=== PATIENT | female | born 1940 | race Two or more races ===

== ENCOUNTER 2019-08-17 20:52 | Inpatient (IN) | payer OTHER, MEDICAID ==
[~2019-08-17] VITALS: Ht 157.5 cm; Wt 56.7 kg
--- NOTE | 2019-08-18 02:30 | NUR ---
GPS SURGICAL TECH NOTES: ADMITTED 78 Y/O FEMALE PT. FROM [facility] TO GPS UNIT ON 5150 HOLD. PER HOLD, PATIENT WAS ACTING BIZARRE, SCREAMING, MAKING NONSENSICAL STATEMENTS IN HER FRONT YARD & NEIGHBOR'S CALLED POLICE. DURING INTERVIEW WITH CRISIS SUPPLY CHAIN ANALYST, PATIENT WAS UNABLE TO PROVIDE VIABLE PLAN FOR HERSELF, PARANOID & PER SON MALLORY, PT. HAS BEEN REFUSING HELP FROM FAMILY. UPON FACE TO FACE ASSESSMENT, PATIENT IS A & O X 2, CONFUSED, DISORIENTED, DISORGANIZED, PARANOID, KEEP CRYING & REPETITIVELY SAYING," I AM SCARED, WHY I AM HERE ?" NON REDIRECTABLE, ANXIOUS, RESTLESS, DEPRESSED. DENIED SI/HI AT THIS TIME. NEEDS ASSISTANCE WITH ADL CARE. WEAKNESS. PT UNABLE TO SIGN CONSENT FORMS DUE TO BEING ANXIOUS/CRYING. ENVIRONMENTAL SAFETY CHECK DONE. BED ALARM ON. BED IN LOW LOCKED POSITION. ORIENTED TO THE UNIT. CHECKED FOR BELONGING AND CONTRABAND. FULL BODY ASSESSMENT DONE, PICTURES TAKEN. PT ORDERED. PROVIDED PT W/ HANDBOOK AND MED GUIDE. PT. IS UNDER CARE OF PSYCHIATRIST DR. GARCIA & MEDICAL DR. DU. NO S/S OF RESP DISTRESS NOTED. WILL CONTINUE TO MONITOR Q 15 MINS. FOR SAFETY & BEHAVIOR.
[2019-08-18] MEDS ORDERED: AMLO5TAB4 PO (03:53)
[2019-08-18] MEDS ORDERED: CARV25TA PO (03:53)
[2019-08-18] MEDS ORDERED: VALS80TA2 PO (03:53)
[2019-08-18] MEDS ORDERED: NEBI10TA2 PO (03:53)
[2019-08-18] MEDS ORDERED: QUET25TA PO ×2 (03:53)
[2019-08-18] MEDS ORDERED: MAG HYDROX/AL HYDROX/SIMETH 30 ML UDC PO PRN (04:00)
[2019-08-18] MEDS ORDERED: MAGNESIUM HYDROXIDE 30 ML UDC PO PRN (04:00)
--- NOTE | 2019-08-18 04:19 | NUR ---
GPS RN NOTE NOTIFIED DR. DU TO DO MED RECON, MD STATED TO INFORM AM MD TO DO MED RECON IN AM SINCE PATIENT DOES NOT NEED ANY MEDICINE AT THIS TIME. WILL ENDORSE TO AM RN TO FOLLOW UP WITH AM MD FOR MED RECON.
[2019-08-18] MEDS ORDERED: BLOOD SUGAR DIAGNOSTIC 1 EACH STRIP IN ONE (04:30)
[2019-08-18 06:36] LABS: BASOPHILS # (AUTO) 0.2 /CMM (0.0-0.2); BASOPHILS % (AUTO) 1.5 % (0.0-2.0); EOSINOPHILS % (AUTO) 2.3 % (0.0-6.0); HEMATOCRIT 37 % (33-45); HEMOGLOBIN 11.4 g/dL (11.5-14.8); LYMPHOCYTES % (AUTO) 28.1 % (20.0-44.0); MEAN CORPUSCULAR HGB CONC 31 g/dl (31.0-36.0); MEAN CORPUSCULAR VOLUME 72 fL (82-100); MONOCYTES # (AUTO) 0.8 /CMM (0.1-1.30); NEUTROPHILS # (AUTO) 6.6 /CMM (1.8-8.9); NEUTROPHILS % (AUTO) 61.1 % (43.0-81.0); PLATELET COUNT (AUTO) 326 /CMM (150-450); RED BLOOD CELL COUNT(AUTO) 5.08 MIL/uL (4.0-5.2); WHITE BLOOD COUNT (AUTO) 10.8 K/uL (4.3-11.0)
--- NOTE | 2019-08-18 06:48 | NUR ---
CALLED SON MALLORY & NOTIFIED CALLED SON MALLORY AT [phone] & INFORMED HIM ABOUT THE ADMISSION AT [facility] GPS UNIT. SON MIGHT VISIT THE PATIENT TODAY OR MIGHT CALL TO GET UPDATES.
[2019-08-18 07:03] LABS: CALCIUM, SERUM 9.1 mg/dL (8.5-10.1); CREATININE 1.2 mg/dL (0.6-1.3); POTASSIUM 4.2 mmol/L (3.5-5.1)
[2019-08-18 08:00] VITALS: BP 115/56
[2019-08-18] MEDS ORDERED: DIVALPROEX SODIUM 125 MG CAP.SPRINK PO SCH (10:30)
--- NOTE | 2019-08-18 11:01 | NUR ---
RN NOTE/MEDICATION REFUSAL-PT REFUSED FIRST DOSE OF DEPAKOTE. EDUCATED PT ON PURPOSE OF MEDICATION PT CONT TO REFUSE X 3.
--- NOTE | 2019-08-18 11:43 | NUR ---
FAMILY CONTACT: SW contacted pts son Charles [phone] for collateral information and discharge planning. Per son, he states pt lives at home alone and refuses assistance from her family. He states that pt is paranoid and states that everyone owes her billions of dollars and calls family demanding for them to pay her. Son states that family has blocked her and has no contact with her due to her aggressive and paranoid behavior. He also states that pt was grandiose delusional of being a social media henao of the world and that Danial and Steve are her friends. Son states that pts bizarre, aggressive, and violent behavior began 5 years ago and it has gotten worse over the years. He states that he and his brothers have attempted multiple times to take pt to the hospital for a psychiatric evaluation but when they have attempted to pt became aggressive and began hitting them. Son states that he believes pt has had a mental illness all her life and it went untreated until now. He also states that this is her fist psychiatric hospitalization. Son states that he wishes for to to return home with a caregiver but knows that due to pts paranoid behavior she will now allow for that to happen. Son will make himself available for transportation once pt is stable for discharge.
--- NOTE | 2019-08-18 12:19 | NUR ---
INITIAL DISCHARGE PLAN: Pt will return home [address] [facility] [address] . Pts son Charles [phone] agrees with pts discharge back home. SW will help form a safe and proper discharge in collaboration with .
--- NOTE | 2019-08-18 15:33 | NUR ---
GROUP THERAPY: SW encouraged pt to attend group therapy on this present day discussing "suicidal ideation." Pt is not appropriate for group at this time as she is responding to internal stimuli and being verbally aggressive. Pt refused to speak to SW and asked her to leave her room. SW will encourage pt to regulate mood via individual/group therapy and be complaint with medications.
[2019-08-18 16:00] VITALS: BP 130/59
--- NOTE | 2019-08-18 16:30 | NUR ---
RN NOTE: DR. JEFFERSON SAW PT THIS AM. NO NEW ORDERS. DR. JEFFERSON NOTIFIED AT 16:30 AND STATED WILL DO MEDICATION RECONCILIATION.
[2019-08-18] MEDS ORDERED: risperiDONE 0.25 MG TABLET PO SCH (17:00)
--- NOTE | 2019-08-18 19:35 | NUR ---
GPS RN OPENING NOTES: PATIENT RESTING IN HER BED, EASILY AGITED ,DISHELVED ,PARANOID DENIES SI/HI/AVH AT THIS TIME,.ENCOURAGED FOR VERBALIZATION OF FEELINGS, SAFETY PRECAUTIONS IMPLEMENTED. INTERACT WITH ENGAGED, WILL CONTINUE TO MONITOR Q15MIN ROUNDS FOR SAFETY AND BEHAVIOR.
[2019-08-18 20:40] VITALS: BP 158/53
[2019-08-18] MEDS: CARVEDILOL 12.5 MG TABLET PO SCH (21:20)
[2019-08-18] MEDS: DIVALPROEX SODIUM 125 MG CAP.SPRINK PO SCH (21:21)
[2019-08-18] MEDS: BENZTROPINE MESYLATE (1 MG) 1 MG TABLET PO SCH (21:21)
--- NOTE | 2019-08-19 05:33 | NUR ---
RN NOTES: PT. REFUSED TO PROVIDE URINE SPECIMEN ,UNABLE TO OBTAIN URINE SPECIMEN , DUE TO PT. CONFUSED , FORGETFUL, ENCOURGED X3 , EXPLINED RISKS AND BENEFITS ,STILL REFUSED WILL CONTINUITY WITH CARE.
--- NOTE | 2019-08-19 06:38 | NUR ---
GPS RN CLOSING NOTE: PATIENT IN BED COMFORTABLY,AND EASILY AGITAED, PARANOID DURING IN SHIFT ,REDIRECT TO THE PATIENT, PT. TOOK ALL NIGHT MED WITH ENCOURAGEMENT ,NO ACUTE DISTRESS NOTED. DENIES PAIN OR DISCOMFORT ,DENIES SI/HI/AVH AT THIS TIME. SAFETY PRECAUTIONS IMPLEMENTED.ALL NEEDS ATTENDED AND ANTICIPATED, ENCOURGED FOR VERBALIZED ANY FEELING ,BED ALARM ON AND IN LOCKED POSITION. WILL CONTINUE TO MONITOR FOR PT'S SAFETY.
[2019-08-19 08:00] VITALS: BP 145/66
[2019-08-19] MEDS: CARVEDILOL 12.5 MG TABLET PO SCH ×2 (08:52→20:53)
[2019-08-19] MEDS: DIVALPROEX SODIUM 125 MG CAP.SPRINK PO SCH ×2 (08:52→20:52)
[2019-08-19] MEDS: AMLODIPINE BESYLATE 5 MG TABLET PO SCH ×2 (08:53→16:33)
[2019-08-19] MEDS: VALSARTAN 80 MG TABLET PO SCH (08:53)
[2019-08-19] MEDS: risperiDONE 0.25 MG TABLET PO SCH ×2 (08:53→16:33)
--- NOTE | 2019-08-19 09:02 | NUR ---
pt took most AM medications but only took 1 tab of coreg and 1 tab of risperdal instead of 2 each stating that it is too many pills and she does not need them.
--- NOTE | 2019-08-19 09:33 | NUR ---
GPS RN NOTE: OPENING NOTE RECEIVED PATIENT IN BED, RESTING. PATIENT IS IN NO APPARENT SIGNS OF DISTRESS BUT IS EASILY AGITATED. ARGUMENTATIVE.PATIENT IS SELECTIVE WITH HER MEDICATION STATING THAT IT WAS TOO MANY PILLS AND HER BLOOD PRESSURE WAS NOT VERY HIGH THIS MORNING. SHE TOOK HALF OF HER COREG AND HALF OF HER RISPERDAL. PT IS PARANOID AND DELUSIONAL STATING THAT WE ARE TRYING TO KILL HER WITH ALL THE MEDICATIONS.PATIENT IS FOCUSED ON GETTING HER CELL PHONE AND LEAVING. PT DENIES SI/HI AT PRESENT TIME. WILL CONT TO MONITOR PT Q15 FOR MOOD, SAFETY AND BEHAVIOR
[2019-08-19 16:00] VITALS: BP 110/71
[2019-08-19] MEDS: ACETAMINOPHEN 325 MG TABLET PO PRN ×2 (17:50→17:52)
[2019-08-19 21:12] VITALS: BP 146/75
[2019-08-19] MEDS: BENZTROPINE MESYLATE (1 MG) 1 MG TABLET PO SCH (21:37)
[2019-08-20] MEDS: LORAZEPAM 0.5 MG TABLET PO PRN ×2 (03:21→18:08)
--- NOTE | 2019-08-20 03:24 | NUR ---
GPS-RN NOTES: ANXIETY PATIENT C/O FEELING ANXIOUS. ADMINISTERED ATIVAN 0.5MG PO ORDERED. WILL CONTINUE TO MONITOR FOR PT'S SAFETY.
[2019-08-20 08:00] VITALS: BP 113/64
[2019-08-20] MEDS: CARVEDILOL 12.5 MG TABLET PO SCH ×3 (08:36→20:21)
[2019-08-20] MEDS: DIVALPROEX SODIUM 125 MG CAP.SPRINK PO SCH ×3 (08:36→20:21)
[2019-08-20] MEDS: risperiDONE 0.25 MG TABLET PO SCH ×3 (08:36→16:18)
[2019-08-20] MEDS: VALSARTAN 80 MG TABLET PO SCH (08:38)
[2019-08-20] MEDS: AMLODIPINE BESYLATE 5 MG TABLET PO SCH ×4 (08:39→16:18)
--- NOTE | 2019-08-20 09:00 | NUR ---
RN NOTE - RECEIVED PT LYING IN BED. NO ACUTE DISTRESS NOTED. VSS, AFEBRILE. PT COMPLIANT WITH MEDICAATION ADMINISTRATION WITH ENCOURAGEMENT. TOOK ALL AM MEDICATIONS. PT IS PARANOID AND DELUSIONAL. PT IS FEARFUL AND WITHDRAWN. PT DENIES SI/HI/AH/VH AT PRESENT TIME. WILL CONT TO MONITOR PT PER GPS PROTOCOL
[2019-08-20 16:13] VITALS: BP 111/59
[2019-08-20 16:22] LABS: APPEARANCE,URINE CLEAR (CLEAR); BILIRUBIN,URINE NEGATIVE (NEGATIVE); BLOOD, URINE NEGATIVE Ery/uL (NEGATIVE); COLOR,URINE YELLOW (YELLOW); KETONES,URINE NEGATIVE (NEGATIVE); LEUKOCYTE ESTERASE ,URINE TRACE (NEGATIVE); NITRITE, URINE NEGATIVE (NEGATIVE); PH,URINE 6.5 (5.0-8.0); PROTEIN,URINE NEGATIVE (NEGATIVE); UGLUCOSE NEGATIVE (NEGATIVE); UROBILINOGEN,URINE 0.2 EU/dL (0.2)
[2019-08-20 17:30] LABS: BACTERIA,URINE None seen /HPF (None Seen); RBC,URINE 0-2 /HPF (0-2); SQUAMOUS EPITHELIAL CELL,UR 0-2 /HPF (None Seen)
--- NOTE | 2019-08-20 18:08 | NUR ---
RN NOTE: PT EXHIBITING INCREASED ANXIETY. MEDICATED WITH ATIVAN O.5 MG PO PRN
[2019-08-20 20:12] VITALS: BP 157/71
[2019-08-20] MEDS: BENZTROPINE MESYLATE (1 MG) 1 MG TABLET PO SCH (21:06)
[2019-08-21 08:00] VITALS: BP 137/68
[2019-08-21] MEDS: VALSARTAN 80 MG TABLET PO SCH (08:32)
[2019-08-21] MEDS: risperiDONE 0.25 MG TABLET PO SCH (08:32)
[2019-08-21] MEDS: AMLODIPINE BESYLATE 5 MG TABLET PO SCH ×2 (08:32→16:46)
[2019-08-21] MEDS: CARVEDILOL 12.5 MG TABLET PO SCH ×2 (08:32→21:01)
[2019-08-21] MEDS: DIVALPROEX SODIUM 125 MG CAP.SPRINK PO SCH ×2 (08:32→21:02)
--- NOTE | 2019-08-21 09:30 | NUR ---
GPS RN OPENING NOTE RECEIVED PATIENT IN BED, RESTING. PATIENT IS IN NO APPARENT SIGNS OF DISTRESS BUT IS EASILY AGITATED. PT IS PARANOID AND DELUSIONAL STATING THAT SHE KNOWS PRESIDENT PAPO. FOCUSED ON GETTING HER PHONE AND GOING ON SOCIAL MEDIA. PT DENIES SI/HI AT PRESENT TIME. WILL CONT TO MONITOR PT Q15 FOR MOOD, SAFETY AND BEHAVIOR
--- NOTE | 2019-08-21 10:22 | NUR ---
UR NOTE: YORDY faxed clinicals to [facility] P: [phone] F: [phone], tracking #: [id number] for review.
[2019-08-21] MEDS ORDERED: risperiDONE 1 MG TABLET PO ONE (12:00)
[2019-08-21 16:00] VITALS: BP 135/73
[2019-08-21] MEDS: risperiDONE 1 MG TABLET PO SCH (16:46)
--- NOTE | 2019-08-21 19:30 | NUR ---
GPS RN OPENING NOTES: PATIENT RESTING IN HER BED, EASILY AGITED ,DISHELVED ,PARANOID, DELUSIONAL , HYPERVERBAL DENIES SI/HI/AVH AT THIS TIME,.ENCOURAGED FOR VERBALIZATION OF FEELINGS, SAFETY PRECAUTIONS IMPLEMENTED. INTERACT WITH ENGAGED, WILL CONTINUE TO MONITOR Q15MIN ROUNDS FOR SAFETY AND BEHAVIOR.
[2019-08-21 20:55] VITALS: BP 103/62
[2019-08-21] MEDS: BENZTROPINE MESYLATE (1 MG) 1 MG TABLET PO SCH (21:33)
[2019-08-21] MEDS: LORAZEPAM 0.5 MG TABLET PO PRN (23:21)
--- NOTE | 2019-08-21 23:22 | NUR ---
RN NOTES: PT. C/O FEELING ANXIOUS ,RESTLESS ATIVAN 0.5 MG PO PRN GIVEN PER PT. REQUEST , WILL CONTINUE TO MONITOR.
--- NOTE | 2019-08-22 06:21 | NUR ---
GPS RN CLOSING NOTE: PATIENT RESTING IN BED ASLEEP,COMFORTABLY,AND EASILY AGITAED, PARANOID, HYPERVERBAL DURING IN SHIFT ,REDIRECT TO THE PATIENT, MED COMPLY ,NO ACUTE DISTRESS NOTED. DENIES PAIN OR DISCOMFORT ,DENIES SI/HI/AVH AT THIS TIME. SAFETY PRECAUTIONS IMPLEMENTED.ALL NEEDS ATTENDED AND ANTICIPATED, ENCOURGED FOR VERBALIZED ANY FEELING ,BED ALARM ON AND IN LOCKED POSITION. WILL CONTINUE TO MONITOR FOR PT'S SAFETY.
[2019-08-22 07:43] LABS: BASOPHILS # (AUTO) 0.1 /CMM (0.0-0.2); BASOPHILS % (AUTO) 0.9 % (0.0-2.0); EOSINOPHILS % (AUTO) 2.3 % (0.0-6.0); HEMATOCRIT 37 % (33-45); HEMOGLOBIN 11.5 g/dL (11.5-14.8); LYMPHOCYTES # (AUTO) 3.8 /CMM (0.8-4.8); LYMPHOCYTES % (AUTO) 31.5 % (20.0-44.0); MEAN CORPUSCULAR HGB CONC 31 g/dl (31.0-36.0); MEAN CORPUSCULAR VOLUME 72 fL (82-100); MONOCYTES # (AUTO) 0.8 /CMM (0.1-1.30); MONOCYTES % (AUTO) 6.9 % (2.0-12.0); NEUTROPHILS % (AUTO) 58.4 % (43.0-81.0); PLATELET COUNT (AUTO) 386 /CMM (150-450); RED BLOOD CELL COUNT(AUTO) 5.18 MIL/uL (4.0-5.2)
[2019-08-22 08:00] VITALS: BP 139/70
[2019-08-22 08:05] LABS: ALBUMIN 3.8 g/dL (3.4-5.0); BILIRUBIN,TOTAL 0.4 mg/dL (0.2-1.0); CALCIUM, SERUM 9.6 mg/dL (8.5-10.1); CREATININE 1.3 mg/dL (0.6-1.3); POTASSIUM 4.5 mmol/L (3.5-5.1); TOTAL PROTEIN, SERUM 7.7 g/dL (6.4-8.2)
[2019-08-22] MEDS: risperiDONE 1 MG TABLET PO SCH ×3 (08:21→21:14)
[2019-08-22] MEDS: DIVALPROEX SODIUM 125 MG CAP.SPRINK PO SCH (08:21)
[2019-08-22] MEDS: VALSARTAN 80 MG TABLET PO SCH (08:21)
[2019-08-22] MEDS: AMLODIPINE BESYLATE 5 MG TABLET PO SCH ×2 (08:22→16:46)
[2019-08-22] MEDS: CARVEDILOL 12.5 MG TABLET PO SCH ×2 (08:22→21:14)
--- NOTE | 2019-08-22 09:29 | NUR ---
GPS RN OPENING NOTE: RECEIVED PATIENT IN BED, RESTING. PATIENT IS IN NO APPARENT SIGNS OF DISTRESS BUT IS EASILY AGITATED. PT IS PARANOID AND DELUSIONAL STATING THAT SHE KNOWS PRESIDENT PAPO. PATIENT BELIEVES EVERYONE IS TALKING ABOUT HER AND THAT SHE SEES CAMERAS AND LIGHTS FOLLOWING HER AT NIGHT.PT DENIES SI/HI AT PRESENT TIME. PT BELIVES SHE IS HERE FOR BLOOD PRESSURE AND CANNOT ACCEPT THIS IS A PSYCHIATRIC UNIT. PT IS FOCUSED ON GOING HOME AND IS EASILY IRRITATED AND AGITATED. WILL CONT TO MONITOR PT Q15 FOR MOOD, SAFETY AND BEHAVIOR
--- NOTE | 2019-08-22 09:44 | NUR ---
UR NOTE: YORDY faxed clinicals to [facility] P: [phone] F: [phone], tracking #: [id number] for review.
--- NOTE | 2019-08-22 11:04 | NUR ---
PROBABLE CAUSE HEARING NOTIFICATION: YORDY contacted pts son Charles [phone] and left a voicemail informing him of pts probable cause hearing on this present day.
--- NOTE | 2019-08-22 12:23 | NUR ---
UR NOTE: SW received a call from Latonya aftercare coordinator at [facility] ([phone]) who stated she will provide pt with aftercare appointments once she has a discharge date. YORDY will call to coordinate aftercare appointments once pt is stable for discharge.
--- NOTE | 2019-08-22 15:27 | NUR ---
FAMILY CONTACT: SW received a call from pts son Charles [phone] and informed him pts 14 day hold has been upheld. Son expressed concerns and is questioning why pt needs to be here longer, SW explained that pt is not stable and has not shown any progress since she was admitted. SW informed him that pt continues to respond to internal stimuli, is paranoid, and delusional and verbally aggressive and believes she is here for medical reason. SW explained that medication is slowly being increased and at this time it is not safe to discharge pt home. Son understands and states that he wishes to visit but knows pt will become aggressive and attempt to leave with him. SW advised that it may be best if he does not visit until pt is more stable as his presence may negatively trigger pt and also informed him that pt is focused on discharging and continues to ask for him so she can leave. Son agrees and states he will consider visiting her at a later time.
[2019-08-22 16:00] VITALS: BP 129/61
--- NOTE | 2019-08-22 16:12 | NUR ---
Group Note: Pt was encouraged to attend group therapy on 08/22/19 at 2pm discussing the topic of concerns around discharge plan. Pt appeared to be responding to internal stimuli and appeared to be delusional. SW attempted to speak to the pt regarding her discharge planning but the pt was unable to focus. SW deemed the pt inappropriate for group therapy.
--- NOTE | 2019-08-22 19:45 | NUR ---
GPS RN OPENING NOTES: PATIENT RESTING IN HER BED, ANXIOUS ,EASILY AGITED ,DISHELVED ,PARANOID, DELUSIONAL , HYPERVERBAL DENIES SI/HI/AVH AT THIS TIME,.ENCOURAGED FOR VERBALIZATION OF FEELINGS, SAFETY PRECAUTIONS IMPLEMENTED. INTERACT WITH ENGAGED, WILL CONTINUE TO MONITOR Q15MIN ROUNDS FOR SAFETY AND BEHAVIOR.
[2019-08-22 20:12] VITALS: BP 119/63
--- NOTE | 2019-08-22 21:00 | NUR ---
RN GPS NOTES: COLLECT URINE SPECIMEN AND SEND OUT TO THE LAB.
[2019-08-22] MEDS: BENZTROPINE MESYLATE (1 MG) 1 MG TABLET PO SCH (21:14)
[2019-08-22] MEDS ORDERED: DIVALPROEX SODIUM 125 MG TABLET.DR PO SCH (22:00)
[2019-08-23 01:26] LABS: APPEARANCE,URINE CLEAR (CLEAR); BILIRUBIN,URINE NEGATIVE (NEGATIVE); BLOOD, URINE NEGATIVE Ery/uL (NEGATIVE); COLOR,URINE YELLOW (YELLOW); KETONES,URINE NEGATIVE (NEGATIVE); LEUKOCYTE ESTERASE ,URINE NEGATIVE (NEGATIVE); NITRITE, URINE NEGATIVE (NEGATIVE); PROTEIN,URINE NEGATIVE (NEGATIVE); UGLUCOSE NEGATIVE (NEGATIVE); UROBILINOGEN,URINE 0.2 EU/dL (0.2)
--- NOTE | 2019-08-23 06:48 | NUR ---
GPS RN CLOSING NOTE: PATIENT RESTING IN BED ASLEEP,COMFORTABLY,AND EASILY AGITAED, PARANOID, HYPERVERBAL DURING IN SHIFT ,REDIRECT TO THE PATIENT, MED COMPLY ,NO ACUTE DISTRESS NOTED. DENIES PAIN OR DISCOMFORT ,DENIES SI/HI/AVH AT THIS TIME. SAFETY PRECAUTIONS IMPLEMENTED.ALL NEEDS ATTENDED AND ANTICIPATED, ENCOURGED FOR VERBALIZED ANY FEELING , WILL CONTINUE TO MONITOR FOR PT'S SAFETY AND BEHAVIOR.
[2019-08-23 08:00] VITALS: BP 118/68
[2019-08-23] MEDS: AMLODIPINE BESYLATE 5 MG TABLET PO SCH ×2 (08:48→16:01)
[2019-08-23] MEDS: LORAZEPAM 0.5 MG TABLET PO PRN ×2 (08:48→17:14)
[2019-08-23] MEDS: risperiDONE 1 MG TABLET PO SCH ×3 (08:48→21:17)
[2019-08-23] MEDS: DIVALPROEX SODIUM 125 MG CAP.SPRINK PO SCH (08:48)
[2019-08-23] MEDS: VALSARTAN 80 MG TABLET PO SCH (08:48)
[2019-08-23] MEDS: CARVEDILOL 12.5 MG TABLET PO SCH ×2 (08:49→21:23)
--- NOTE | 2019-08-23 14:30 | NUR ---
FAMILY CONTACT: SW met with pts son Clem [phone] on this present day after he expressed not knowing what was going on with pt and why she is hospitalized. SW explained that she has been communicating with pts son Charles who has been the pts point of contact. Son states that his brother Charles has not been communicating with him and has not given him information regarding pts current hospitalization and psychiatric hold. SW explained reason for hold and also discussed pts discharge plan. Son stated that he had no idea pt had been acting bizarre at home. He states that when pt is ready for discharge he will be coming to pick her up and transporting her home.
[2019-08-23 16:00] VITALS: BP 120/75
--- NOTE | 2019-08-23 16:10 | NUR ---
GROUP NOTE: SW encouraged pt to attend group on this present day discussing "discharge planning." Pts son and daughter in law were in pts room visiting and pt refused to attend. Pt appeared calm but was delusional stating that she needed to leave now because she won the lotto and needed to go collect her money. Pts son intervened and stated that she was in the hospital receiving help and that she did not win the lotto. Pt became agitated and was saying he was just jealous of her. Pts reality is impaired and is unable to hold a reality-based conversation at this time. SW will continue to assess for pts level of insight towards her presenting problems and encourage participation in group milieu.
--- NOTE | 2019-08-23 19:23 | NUR ---
GPS-RN OPENING NOTES: PATIENT IN BED AWAKE, ALERT AND ORIENTED X2 WITH EPISODES OF FORGETFUL. IN NO APPARENT DISTRESS NOTED. FAMILY AT BEDSIDE SUPPORTIVE OF CARE. PATIENT IS ISOLATIVE, WITHDRAWN, WITH LIMITED SOCIAL INTERACTIONS WITH PEERS. VERBALIZATION OF FEELINGS ENCOURAGED. NO AGITATION NOTED. SAFETY PRECAUTIONS IN PLACE. WILL CONTINUE TO MONITOR Q15MIN ROUNDS FOR SAFETY AND BEHAVIOR.
[2019-08-23 20:40] VITALS: BP 133/51
[2019-08-23] MEDS: DIVALPROEX SODIUM 500 MG TABLET.DR PO SCH (21:18)
[2019-08-23] MEDS: BENZTROPINE MESYLATE (1 MG) 1 MG TABLET PO SCH (21:18)
[2019-08-23 21:23] VITALS: BP 123/60
[2019-08-24 08:00] VITALS: BP 108/53
--- NOTE | 2019-08-24 08:11 | NUR ---
UR NOTE: YORDY faxed clinicals to [facility] P: [phone] F: [phone], tracking #: [id number] for review.
[2019-08-24] MEDS: CARVEDILOL 12.5 MG TABLET PO SCH ×2 (08:54→21:42)
[2019-08-24] MEDS: DIVALPROEX SODIUM 125 MG CAP.SPRINK PO SCH (08:54)
[2019-08-24] MEDS: AMLODIPINE BESYLATE 5 MG TABLET PO SCH ×2 (08:54→16:29)
[2019-08-24] MEDS: VALSARTAN 80 MG TABLET PO SCH (08:54)
[2019-08-24] MEDS: risperiDONE 1 MG TABLET PO SCH ×3 (08:54→20:54)
--- NOTE | 2019-08-24 14:50 | NUR ---
UR NOTE: YORDY received a call from Bebeto, caser in at [facility] P: [phone] F: [phone] requesting SW fax [phone] and [phone] holds and also requesting Depakote Levels as he states that per MD notes pt currently does not meet criteria for continued psychiatric hospitalization.
--- NOTE | 2019-08-24 14:53 | NUR ---
UR NOTE: faxed [phone] holds to Beb[employer] protective services case worker at [facility] P: [phone] F: [phone], tracking #: [id number] for review.
--- NOTE | 2019-08-24 15:31 | NUR ---
Group Note: Pt was encouraged to attend group therapy on 08/24/19 at 2pm discussing the topic of social supports. Pt appeared to be responding to internal stimuli and appeared to be delusional. SW attempted to speak to the pt regarding her discharge planning but the pt was unable to focus. SW deemed the pt inappropriate for group therapy.
[2019-08-24 16:00] VITALS: BP 130/64
[2019-08-24 20:15] VITALS: BP 113/82
[2019-08-24 20:25] VITALS: BP 138/66
[2019-08-24] MEDS: BENZTROPINE MESYLATE (1 MG) 1 MG TABLET PO SCH (21:43)
[2019-08-24] MEDS: DIVALPROEX SODIUM 500 MG TABLET.DR PO SCH (21:43)
[2019-08-25] MEDS: TEMAZEPAM 7.5 MG CAPSULE PO PRN (01:53)
--- NOTE | 2019-08-25 01:53 | NUR ---
GPS-RN NOTE: INSOMNIA PATIENT C/O INABILITY TO SLEEP. ADMINISTERED RESTORIL ORDERED. WILL CONTINUE TO MONITOR FOR PATIENT'S SAFETY.
[2019-08-25 08:00] VITALS: BP 141/69
[2019-08-25] MEDS: DIVALPROEX SODIUM 125 MG CAP.SPRINK PO SCH (08:15)
[2019-08-25] MEDS: risperiDONE 1 MG TABLET PO SCH ×3 (08:15→21:23)
[2019-08-25] MEDS: CARVEDILOL 12.5 MG TABLET PO SCH ×2 (08:16→21:00)
[2019-08-25] MEDS: AMLODIPINE BESYLATE 5 MG TABLET PO SCH ×2 (08:16→16:45)
[2019-08-25] MEDS: VALSARTAN 80 MG TABLET PO SCH (08:17)
[2019-08-25 16:00] VITALS: BP 99/57
[2019-08-25 20:00] VITALS: BP 127/53
[2019-08-25] MEDS: DIVALPROEX SODIUM 500 MG TABLET.DR PO SCH (21:22)
[2019-08-25] MEDS: BENZTROPINE MESYLATE (1 MG) 1 MG TABLET PO SCH (21:23)
[2019-08-26 06:47] LABS: BASOPHILS # (AUTO) 0.1 /CMM (0.0-0.2); BASOPHILS % (AUTO) 1.1 % (0.0-2.0); EOSINOPHILS % (AUTO) 2.6 % (0.0-6.0); HEMATOCRIT 36 % (33-45); HEMOGLOBIN 11.1 g/dL (11.5-14.8); LYMPHOCYTES # (AUTO) 3.9 /CMM (0.8-4.8); LYMPHOCYTES % (AUTO) 38.3 % (20.0-44.0); MEAN CORPUSCULAR HGB CONC 31 g/dl (31.0-36.0); MEAN CORPUSCULAR VOLUME 72 fL (82-100); MONOCYTES # (AUTO) 0.8 /CMM (0.1-1.30); MONOCYTES % (AUTO) 8.2 % (2.0-12.0); NEUTROPHILS # (AUTO) 5.1 /CMM (1.8-8.9); NEUTROPHILS % (AUTO) 49.8 % (43.0-81.0); PLATELET COUNT (AUTO) 333 /CMM (150-450); RED BLOOD CELL COUNT(AUTO) 4.92 MIL/uL (4.0-5.2); WHITE BLOOD COUNT (AUTO) 10.3 K/uL (4.3-11.0)
[2019-08-26 07:30] LABS: ALBUMIN 3.1 g/dL (3.4-5.0); BILIRUBIN,TOTAL 0.2 mg/dL (0.2-1.0); CALCIUM, SERUM 8.9 mg/dL (8.5-10.1); CREATININE 1.2 mg/dL (0.6-1.3); POTASSIUM 4.6 mmol/L (3.5-5.1); TOTAL PROTEIN, SERUM 6.7 g/dL (6.4-8.2)
[2019-08-26 08:00] VITALS: BP 123/62
[2019-08-26] MEDS: risperiDONE 1 MG TABLET PO SCH ×3 (08:30→21:26)
[2019-08-26] MEDS: VALSARTAN 80 MG TABLET PO SCH (08:30)
[2019-08-26] MEDS: DIVALPROEX SODIUM 125 MG CAP.SPRINK PO SCH (08:30)
[2019-08-26] MEDS: AMLODIPINE BESYLATE 5 MG TABLET PO SCH ×2 (08:31→16:27)
[2019-08-26] MEDS: CARVEDILOL 12.5 MG TABLET PO SCH ×2 (08:31→21:26)
[2019-08-26 16:00] VITALS: BP 110/73
[2019-08-26 20:12] VITALS: BP 110/49
[2019-08-26 21:26] VITALS: BP 140/68
[2019-08-26] MEDS: DIVALPROEX SODIUM 500 MG TABLET.DR PO SCH (21:27)
[2019-08-26] MEDS: BENZTROPINE MESYLATE (1 MG) 1 MG TABLET PO SCH (21:27)
[2019-08-26] MEDS: TEMAZEPAM 7.5 MG CAPSULE PO PRN (22:49)
--- NOTE | 2019-08-26 22:49 | NUR ---
GPS-RN NOTE: INSOMNIA PATIENT C/O INABILITY TO SLEEP. ADMINISTERED RESTORIL 7.5MG PO ORDERED PER PT'S REQUEST. WILL CONTINUE TO MONITOR FOR PATIENT'S SAFETY.
[2019-08-27 08:00] VITALS: BP 128/58
[2019-08-27] MEDS: VALSARTAN 80 MG TABLET PO SCH (08:44)
[2019-08-27] MEDS: AMLODIPINE BESYLATE 5 MG TABLET PO SCH ×2 (08:44→16:59)
[2019-08-27] MEDS: risperiDONE 1 MG TABLET PO SCH ×3 (08:44→21:41)
[2019-08-27] MEDS: DIVALPROEX SODIUM 125 MG CAP.SPRINK PO SCH (08:44)
[2019-08-27] MEDS: CARVEDILOL 12.5 MG TABLET PO SCH ×2 (08:48→21:41)
--- NOTE | 2019-08-27 09:42 | NUR ---
GPS RN OPENING NOTE: RECEIVED PATIENT IN BED, RESTING. PATIENT IS IN NO APPARENT SIGNS OF DISTRESS BUT IS EASILY AGITATED. PT IS PARANOID AND DELUSIONAL STATING THAT SHE NEEDS TO LEAVE BECAUSE SHE WON THE LOTTO. PT DENIES SI/HI AT PRESENT TIME. PT BELIVES SHE IS HERE FOR BLOOD PRESSURE. PT IS FOCUSED ON GOING HOME AND IS EASILY IRRITATED AND AGITATED. WILL CONT TO MONITOR PT Q15 FOR MOOD, SAFETY AND BEHAVIOR
[2019-08-27 16:00] VITALS: BP 117/55
--- NOTE | 2019-08-27 16:59 | NUR ---
GPS RN NOTE: 1700 MED PATIENT REFUSED 1700 BP MED STATING THAT HER BP IS CURRENTLY TOO LOW. DESPITE EDUCATION PATIENT CONTINUES TO REFUSE. WILL CONTINUE TO MONITOR Q15 FOR MOOD, SAFETY AND BEHAVIOR
[2019-08-27 20:30] VITALS: BP 125/58
[2019-08-27] MEDS: DIVALPROEX SODIUM 500 MG TABLET.DR PO SCH (21:40)
[2019-08-27] MEDS: BENZTROPINE MESYLATE (1 MG) 1 MG TABLET PO SCH (21:41)
[2019-08-27] MEDS: TEMAZEPAM 7.5 MG CAPSULE PO PRN (22:05)
--- NOTE | 2019-08-27 22:06 | NUR ---
ms/rn notes Patient in bed, Aaox3. V/S stable, afebrile. Unable to sleep Complained of insomnia. Medicated with Restoril 1tab given as ordere. All safety precautions rendered. CAll light within reach. BEd put on lowest position. All needs attended. will continue plan of care.
[2019-08-28 08:00] VITALS: BP 139/71
[2019-08-28] MEDS: risperiDONE 1 MG TABLET PO SCH ×3 (08:23→21:09)
[2019-08-28] MEDS: CARVEDILOL 12.5 MG TABLET PO SCH ×2 (08:23→21:00)
[2019-08-28] MEDS: DIVALPROEX SODIUM 125 MG CAP.SPRINK PO SCH (08:24)
[2019-08-28] MEDS: VALSARTAN 80 MG TABLET PO SCH (08:24)
[2019-08-28] MEDS: AMLODIPINE BESYLATE 5 MG TABLET PO SCH ×2 (08:24→16:12)
--- NOTE | 2019-08-28 09:01 | NUR ---
UR NOTE: YORDY faxed clinicals to [facility] P: [phone] F: [phone], tracking #: [id number] for review.
--- NOTE | 2019-08-28 09:02 | NUR ---
UR NOTE: YORDY contacted Latonya aftercare coordinator at [facility] ([phone]) to inform her pt will be discharged on Wednesday08/29/19 and will be needing aftercare appointments.
--- NOTE | 2019-08-28 09:03 | NUR ---
FAMILY CONTACT: YORDY contacted pts son Clem [phone] and informed him pt will be discharged tomorrow Wednesday08/29/19. Son states he will be picking pt up between 8:00am-10:00am.
[2019-08-28 16:00] VITALS: BP 123/52
--- NOTE | 2019-08-28 19:17 | NUR ---
GPS RN OPENING NOTES: PATIENT RESTING IN HER BED, ANXIOUS ,EASILY AGITATED, PARANOID, DELUSIONAL , HYPERVERBAL DENIES SI/HI/AVH AT THIS TIME. ENCOURAGED FOR VERBALIZATION OF FEELINGS, SAFETY PRECAUTIONS IMPLEMENTED. INTERACT WITH ENGAGED, BED ALARM ON. SAFETY MEASURES IN PLACE. WILL CONTINUE TO MONITOR Q15MIN ROUNDS FOR SAFETY AND BEHAVIOR.
[2019-08-28 20:14] VITALS: BP 128/61
--- NOTE | 2019-08-28 21:15 | NUR ---
REFUSED COREG PATIENT REFUSED TO TAKE COREG FOR BP DESPITE OF RISKS & BENEFITS EXPLANATIONS. PATIENT STATED," MY BP IS NORMAL & I DON'T WANT BP TO DROP TOO MUCH & I DO NOT WANT TO TAKE BP MEDICINE NOW." VITALS ARE WNL AT THIS TIME. WILL CONTINUE TO MONITOR FOR ANY CHANGES.
[2019-08-28] MEDS: DIVALPROEX SODIUM 500 MG TABLET.DR PO SCH (22:03)
[2019-08-28] MEDS: BENZTROPINE MESYLATE (1 MG) 1 MG TABLET PO SCH (22:03)
[2019-08-28] MEDS: TEMAZEPAM 7.5 MG CAPSULE PO PRN (23:04)
--- NOTE | 2019-08-28 23:05 | NUR ---
PRN RESTORIL GIVEN PATIENT VERBALIZED THAT SHE IS UNABLE TO SLEEP, REQUESTED TO GET SLEEPING PILL, PRN RESTORIL 7.5 MG 1 CAP PO GIVEN . WILL REASSESS FOR EFFECTIVENESS.
[2019-08-29 08:00] VITALS: BP 125/54
[2019-08-29] MEDS: CARVEDILOL 12.5 MG TABLET PO SCH (08:07)
[2019-08-29] MEDS: DIVALPROEX SODIUM 125 MG CAP.SPRINK PO SCH (08:08)
[2019-08-29] MEDS: AMLODIPINE BESYLATE 5 MG TABLET PO SCH (08:08)
[2019-08-29 08:09] VITALS: BP 125/54
[2019-08-29] MEDS: VALSARTAN 80 MG TABLET PO SCH (08:09)
[2019-08-29] MEDS: risperiDONE 1 MG TABLET PO SCH (08:09)
--- NOTE | 2019-08-29 09:10 | NUR ---
DISCHARGE NOTE: Pt will be discharged home via private vehicle between 8:00am-10:00am [address] [facility] [address]. Pts son Clem [phone] will be picking pt up and transporting home. Pts mood is euthymic with congruent affect. Pt denied visual/auditory hallucinations and denied suicidal/homicidal ideation. Pt will be under the psychiatric treatment of Dr. Anderson Sykes Address: [address] [place] [id number] and YORDY faxed clinicals to . YORDY also provided a referral to Rehabilitation Clerk: Dr. Christoph Farias [address] [facility] [address]. . The multidisciplinary exit care form was done, printed, signed, and given to the patient.
--- NOTE | 2019-08-29 11:00 | NUR ---
INTERNAL AFFAIRS COMMANDER NOTE:78 YEAR OLD FEMALE DISCHARGED HOME IN STABLE CONDITION. COMPLIANT WITH MEDICATIONS, COOPERATIVE WITH TREATMENT PLANS. PATIENT DENIES SI/HI AND INSTRUCTED TO GO TO THE CLOSEST ER IF DEVELOPING SI/HI. BEHAVIOR IMPROVED, PSYCHIATRIC TREATMENT PLANS MET, MEDICAL TREATMENT PLANS DEFERRED FOR CONTINUAL MONITORING. EDUCATED PT AND SON JESSICA ABOUT AFTER CARE PLAN AND COPY PROVIDED. RETURNED PERSONAL BELONGINGS TO PATIENT. MEDICATIONS RECONCILED WITH DR. GARCIA AND DR. DU. PT SIGNED DISCHARGE PAPERWORK. WOUND PICTURES TAKEN AND DOCUMENTED IN THE CHART.PT LEFT THE UNIT WITH SON AT 11:00 VIA AMBULATION AND PERSONAL VECHICLE.
== END 2019-08-29 11:00 | disposition home or self-care (01) | DRG 885 ==
LOC: GPS 08-18 02:12
PROVIDERS: ADMIT Psychiatry & Neurology Psychosomatic Medicine; ATTEND Internal Medicine
DX: F31.9 Bipolar disorder, unspecified (principal); F29 Unspecified psychosis not due to a substance or known physiological condition; F41.9 Anxiety disorder, unspecified; F03.90 Unspecified dementia, unspecified severity, without behavioral disturbance, psychotic disturbance, mood disturbance, and anxiety; I10 Essential (primary) hypertension; Z73.6 Limitation of activities due to disability
CPT/HCPCS: 36415; 80048-TC; 80053-TC; 80061-TC; 80164-TC; 81000-TC; 82962-TC; 85025-TC; 87081-TC; 87086-TC; 97116-TC